=== PATIENT | female | born 1950 | race Caucasian/White ===

== ENCOUNTER 2019-06-23 09:20 | Day surgery (SDC) | payer BC ==
[~2019-06-23] VITALS: Ht 167.6 cm; Wt 98.4 kg
[2019-06-23] MEDS ORDERED: NORVASC5 MG PO (09:48)
[2019-06-23] MEDS ORDERED: ZYRTEC10 MG PO (09:49)
[2019-06-23] MEDS ORDERED: PRILOSEC OTC20 MG PO (09:49)
[2019-06-23] MEDS ORDERED: CYMBALTA30 MG PO (09:49)
[2019-06-23] MEDS ORDERED: VENTOLIN HFA18 GM INH (09:50)
--- NOTE | 2019-06-23 21:29 | EKG ---
[facility] [address] [facility] [place] [address] Signed Normal sinus rhythm Left axis deviation Nonspecific T wave abnormality Abnormal ECG No previous ECGs available Confirmed by ESTHER KOTHARI MD ([id number]) on 06/23/2019 9:29:34 PM Electronically Signed By: ESTHER KOTHARI MD 06/23/19 2129 PATIENT NAME: EDITH TANG Electrocardiogram DATE OF : 52 PHYSICIAN: ESTHER KOTHARI MD REPORT #: [id number] REPORT IS CONFIDENTIAL AND NOT TO BE RELEASED WITHOUT AUTHORIZATION
--- NOTE | 2019-06-24 22:00 | OR ---
[facility] [address] [place], [place] [address] Signed DATE OF OPERATION: 06/23/2019 SURGEON: Zackary Espinoza MD PREOPERATIVE DIAGNOSES: 1. Longstanding gastroesophageal reflux symptoms and occasions of dysphagia. 2. 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 POSTOPERATIVE DIAGNOSIS: 1. Corrugated appearance of mid esophagus, uncertain regarding the eosinophilic esophagitis. 2. Low-grade stricture. PROCEDURES: 1. Esophagogastroduodenoscopy with biopsy. 2. [place] Korean pimv-ali-ewag dilation to 51-Montenegrin with fluoroscopic control. ANESTHESIA: Propofol infusion, Krystian Dang CRNA INDICATIONS: This 69-year-old white woman, who is a patient of MAYURI Cordova in [place]. She has been treated for a number of years by Dr. Oakley, subsequently Dr. Cates in [place], they have both seems retired. She has had complaints of episodic regurgitation with "flecks of blood" and some dysphagia from feiq-tw-yzto. She was treated empirically by MAYURI Cordova with Prilosec, which has been markedly helpful to her regarding reflux symptoms and her dysphagia somewhat. She is not known to have had prior dilation in the past. She says she has had ulcers diagnosed in the distant past. Additionally, she notes a family history of esophageal cancer in her family (father). She is admitted to undergo upper endoscopy and possible dilation depending on clinical findings. She understands risks of bleeding, infection, and perforation and wished to proceed. FINDINGS: There was no dense stricture and certainly no sign of Wahl's epithelium. The GE junction was relatively good. There was no large hiatal hernia by any means. Stomach looked reasonable as did the duodenum. There were few gastric polyps of little concern. Biopsies were taken from the antrum for both ZAHRAA and pathologic testing as well as midesophagus to assess for eosinophilic esophagitis. Given her dysphagia complaints and Electronically Signed By: ZACKARY ESPINOZA MD 06/24/19 2200 PATIENT NAME: EDITH TANG OPERATIVE REPORT DATE OF : 52 REPORT #: [id number] PHYSICIAN: ZACKARY ESPINOZA MD PCP: SILVANA MADRID PA-C REPORT IS CONFIDENTIAL AND NOT TO BE RELEASED WITHOUT AUTHORIZATION [facility] [address] [place], [place] [address] Signed despite improvement with Prilosec, esophageal dilation was undertaken as a separate distinct intervention using an [place] xfbx-obb-mhsd dilator system with fluoroscopic control. Dilation was undertaken with 51-Montenegrin without problem. Post dilation endoscopy showed no sign of mucosal tearing or anything of that sort. DESCRIPTION OF PROCEDURE: The patient was brought to the operating room, endoscopy suite and placed in lateral decubitus position, given intravenous sedation with propofol infusional technique. Hurricaine spray hypopharyngeal anesthesia had been given initially. A bite block was of placed. An Olympus video upper endoscope was passed into the hypopharynx. Vocal cords were normal. Scope was advanced down the esophagus. There appeared to be a midesophageal corrugated appearance suggestive, though not diagnostic of an eosinophilic esophagitis and minimal low-grade stricture. The scope was advanced into the distal esophagus. There was no evidence of Wahl's epithelium. The scope was passed into the stomach, which was insufflated with air. Rugal folds were normal. Stomach laid in a transverse position. With various manipulations, the antrum was better characterized and pylorus noted and the scope passed through into the duodenum. The duodenum was normal. There was no sign of ulceration. Biopsies were taken of the antrum for both ZAHRAA and pathologic testing. Retroflexed view was undertaken. With various manipulation, it showing a good flap valve, it is more so than I expected. The scope was withdrawn to the distal esophagus. There was no sign of esophageal mucosal lesions, specifically no Wahl's epithelium. The scope was withdrawn to the mid esophagus and biopsies were taken there due to the corrugated appearance and to assess for eosinophilic esophagitis. The scope was once again advanced into the stomach and the [place] Korean ytst-jmo-utbq dilator wire was passed through the operating channel of the scope and passed to the antrum. The scope was carefully withdrawn and secured by the itinerant teacher assistant and scope fully removed. Fluoroscopy was then used to ascertain the wire well below the diaphragm into the stomach. A 36-Montenegrin [place] xpxj-nou-qxlg dilator was lubricated and passed over the wire under fluoroscopic control. Photographs were taken. The dilator was then removed. Given the lack of resistance and passage of the dilator, a 51-Montenegrin dilator was then passed under direct fluoroscopic control. Again, well lubricated and showing no resistance to passage. The dilator and the wire were then removed. The upper endoscope was once again reintroduced into the oropharynx after replacement of the bite block. Examination of the esophagus throughout showed no sign of injury or other problem. Stomach was normal as well. The scope was removed, and the patient was taken to the recovery room in good condition. CONCLUDING DIAGNOSIS: Mild dysphagia may well be related to the eosinophilic esophagitis. We will await biopsies to ascertain if that is the case. There is no sign of Wahl's epithelium Electronically Signed By: ZACKARY ESPINOZA MD 06/24/19 3737 PATIENT NAME: EDITH TANG OPERATIVE REPORT DATE OF : 52 REPORT #: [id number] PHYSICIAN: ZACKARY ESPINOZA MD PCP: SILVANA MADRID PA-C REPORT IS CONFIDENTIAL AND NOT TO BE RELEASED WITHOUT AUTHORIZATION [address] [place], [place] [address] Signed despite her concerns for that. I would have her continue with the Prilosec 20 mg p.o. daily. She wishes a refill and I will provide for her. We will see her back in a month or so as a consolidating visit. MD DARLIN Metzger/PAULINE /[id number] Copies: ~ Electronically Signed By: ZACKARY ESPINOZA MD 06/24/19 2200 PATIENT NAME: EDITH TANG OPERATIVE REPORT DATE OF : 52 REPORT #: [id number] PHYSICIAN: ZACKARY ESPINOZA MD PCP: SILVANA MADRID PA-C REPORT IS CONFIDENTIAL AND NOT TO BE RELEASED WITHOUT AUTHORIZATION
--- NOTE | 2019-06-28 14:20 | PATH ---
[facility] [address] [place], [place] [address] Signed SPECIMEN(S): A ANTRUM/PYLORUS SPECIMEN(S): B MIDDLE ESOPHAGUS SPECIMEN SOURCE: A. ANTRUM/PYLORUS B. MIDDLE ESOPHAGUS CLINICAL HISTORY: Hematemesis, peptic disease. Postop Dx: Low grade esophageal stricture. MICROSCOPIC DESCRIPTION: Histologic sections of all submitted blocks are examined by light microscopy. These findings, together with the gross examination, support the pathologic diagnosis. FINAL PATHOLOGIC DIAGNOSIS: A. Stomach, antrum/pylorus, biopsies: - No significant histopathologic alterations. B. Middle esophagus, biopsy: - Reflux esophagitis. - No evidence of Wahl's esophagus. - A fragment of normal appearing gastric mucosa is present. COMMENT: For specimen A, the sections through the gastric biopsies show fragments of histologically unremarkable antral mucosa. There is no evidence of acute or chronic inflammation. There is no evidence of H. pylori, intestinal metaplasia, abnormal infiltrates or neoplasia. For specimen B, the biopsy contains reactive appearing squamous mucosa. Infiltration by lymphocytes and a small number of eosinophils is present. There is a small fragment of gastric mucosa present. It is histologically unremarkable. There is no evidence of intestinal metaplasia. There is no evidence of H. pylori. TWK:emb:C2NR GROSS DESCRIPTION: Two specimens are received in two containers, labeled "DW." A. The specimen, labeled "DW, 1," and designated on the requisition "antrum/pylorus," is received in formalin and consists of two johnson soft tissue fragments that measure 0.3 cm in greatest dimension. The specimen is entirely submitted in cassette (A1). B. The specimen, labeled "DW, 2," and designated on the requisition "mid PATIENT NAME: EDITH TANG PATHOLOGY DATE OF : 52 REPORT #: [id number] PHYSICIAN: IRVIN PATHOLOGY PCP: SILVANA MADRID PA-C REPORT IS CONFIDENTIAL AND NOT TO BE RELEASED WITHOUT AUTHORIZATION [facility] [address] [place], [place] [address] Signed esophagus," is received in formalin and consists of two johnson soft tissue fragments that measure 0.4 cm in greatest dimension. The specimen is entirely submitted in cassette (B1). AT (under the direct supervision of a pathologist) The Gross Description was prepared using a voice recognition system. The report was reviewed for accuracy; however, sound-alike word errors, addition and/or deletions may occur. If there is any question about this report, please contact Client Services. PERFORMING LABORATORY: The technical component was performed by [facility], [address] [place] [id number] (Street Light Servicer Helper: Nesha Perkins MD; CLIA# [id number]). [facility], [address] [place] [id number] (CLIA# [id number]). Diagnostician: Zoltan Coppola MD Pathologist Electronically Signed 06/28/2019 Copies: ~ PATIENT NAME: EDITH TANG PATHOLOGY DATE OF : 52 REPORT #: [id number] PHYSICIAN: IRVIN CERRATO PCP: SILVANA MADRID PA-C REPORT IS CONFIDENTIAL AND NOT TO BE RELEASED WITHOUT AUTHORIZATION
== END 2019-06-23 14:50 | disposition home or self-care (01) ==
LOC: DS 09:20 → OPS 09:20 → DS 10:00 → OPS 10:30
PROVIDERS: Surgery
PROC: 0DB28ZX Excision of Middle Esophagus, Via Natural or Artificial Opening Endoscopic, Diagnostic (ICD-10-PCS; 2019-06-23)
PROC: 0DB78ZX Excision of Stomach, Pylorus, Via Natural or Artificial Opening Endoscopic, Diagnostic (ICD-10-PCS; 2019-06-23)
PROC: 0D768ZZ Dilation of Stomach, Via Natural or Artificial Opening Endoscopic (ICD-10-PCS; principal; 2019-06-23 10:30)
DX: K31.89 Other diseases of stomach and duodenum (principal); K21.0 Gastro-esophageal reflux disease with esophagitis; I10 Essential (primary) hypertension; J45.909 Unspecified asthma, uncomplicated; Z88.6 Allergy status to analgesic agent; Z88.0 Allergy status to penicillin; Z79.899 Other long term (current) drug therapy; Z79.51 Long term (current) use of inhaled steroids
CPT/HCPCS: 76000; 93005; 93010; J2001; J2704

== ENCOUNTER 2021-08-05 14:18 | Inpatient (IN) | payer MEDICARE ==
[~2021-08-05] VITALS: Ht 167.6 cm; Wt 98.7 kg
[~2021-08-05 14:18] MED LIST: CYMBALTA30 MG PO; NORVASC5 MG PO; PRILOSEC OTC20 MG PO; VENTOLIN HFA18 GM INH; ZYRTEC10 MG PO
[2021-08-05] MEDS ORDERED: AMLODIPINE BESYL5 MG PO (14:38)
[2021-08-06] MEDS ORDERED: CLOBETASOL PROP15 G1 TOP (07:50)
[2021-08-06] MEDS ORDERED: MIRALAX17 GM PO (08:50)
[2021-08-06] MEDS ORDERED: SIMETHICONE80 MG PO (08:51)
--- NOTE | 2021-08-06 18:18 | EKG ---
[facility] [address] [place] [address] Signed Poor data quality, interpretation may be adversely affected Atrial fibrillation with rapid ventricular response Low voltage QRS Nonspecific T wave abnormality Abnormal ECG When compared with ECG of 23-JUN-2019 10:09, Atrial fibrillation has replaced Sinus rhythm Vent. rate has increased BY 69 BPM Inverted T waves have replaced nonspecific T wave abnormality in Lateral leads Confirmed by KERON KENT MD ([id number]) on 08/06/2021 6:18:20 PM Electronically Signed By: KERON KENT MD 08/06/21 1818 PATIENT NAME: EDITH TANG Electrocardiogram DATE OF : 52 PHYSICIAN: KERON KENT MD REPORT #: [id number] REPORT IS CONFIDENTIAL AND NOT TO BE RELEASED WITHOUT AUTHORIZATION
[2021-08-09] MEDS ORDERED: OMEPRAZOLE40 MG PO (09:11)
[2021-08-09] MEDS ORDERED: WARFARIN SODIUM5 MG PO (10:48)
[2021-08-09] MEDS ORDERED: METOPROLOL SUC200 MG PO (10:49)
[2021-08-09] MEDS ORDERED: HYDROXYZINE PAM25 MG PO (10:49)
[2021-08-09] MEDS ORDERED: VITAMIN B-121000 MCG PO (10:50)
[2021-08-09] MEDS ORDERED: TORSEMIDE10 MG PO (10:55)
== END 2021-08-09 13:15 | disposition home or self-care (01) | DRG 291 ==
LOC: ED 14:18 → CCU 20:10 → MS 08-07 12:38
PROVIDERS: ADMIT Internal Medicine; ATTEND Internal Medicine
DX: I11.0 Hypertensive heart disease with heart failure (principal); I50.33 Acute on chronic diastolic (congestive) heart failure; Z20.822 Contact with and (suspected) exposure to COVID-19; I48.0 Paroxysmal atrial fibrillation; I34.0 Nonrheumatic mitral (valve) insufficiency; D51.3 Other dietary vitamin B12 deficiency anemia; G47.33 Obstructive sleep apnea (adult) (pediatric); K21.9 Gastro-esophageal reflux disease without esophagitis; F41.9 Anxiety disorder, unspecified; Z87.11 Personal history of peptic ulcer disease; Z88.0 Allergy status to penicillin; Z88.8 Allergy status to other drugs, medicaments and biological substances; Z79.01 Long term (current) use of anticoagulants; Z79.899 Other long term (current) drug therapy
CPT/HCPCS: 36415; 71045; 71260; 74018; 80048; 80053; 80061; 82607; 82728; 82746; 83036; 83540; 83550; 83735; 83880; 84484; 85025; 85379; 85610; 87502; 93005; 93010; 93306; 99285-25; A9270; C9803; J1650; J1940; J2405; Q0177; Q9967; U0003

== ENCOUNTER 2021-09-01 16:39 | Emergency (ER) | payer MEDICARE ==
[~2021-09-01] VITALS: Ht 167.6 cm; Wt 100.2 kg
[~2021-09-01 16:39] MED LIST changes: +AMLODIPINE BESYL5 MG PO; +CLOBETASOL PROP15 G1 TOP; +HYDROXYZINE PAM25 MG PO; +METOPROLOL SUC200 MG PO; +MIRALAX17 GM PO; +OMEPRAZOLE40 MG PO; +SIMETHICONE80 MG PO; +TORSEMIDE10 MG PO; +VITAMIN B-121000 MCG PO; +WARFARIN SODIUM5 MG PO
--- OUTSIDE RECORDS SUMMARY | 2021-09-01 17:30 | XMS ---
PreManage Notification: EDITH TANG Security Commission Agent Livestock Events No recent Security Events currently on file CRITERIA MET - [facility] - 2 Visits in 30 Days CARE PROVIDERS LOUISE BARKER Physician Manager Cardiovascular: Medical Current PHONE: Unknown [place] [facility] Current PHONE: Unknown Bk has no Care Guidelines for this patient. Lydia VISIT COUNT (12 MO.) 2 [facility] TOTAL 2 NOTE: Visits indicate total known visits. ED/UCC VISIT TRACKING (12 MO.) 09/01/2021 16:39 [facility] TYPE: Emergency COMPLAINT: - SHORTNESS OF BREATH 08/05/2021 14:20 [facility] TYPE: Emergency COMPLAINT: - CHEST PAIN, PAIN/SWELLING LEGS, SOB INPATIENT VISIT TRACKING (12 MO.) 08/05/2021 20:[address] [facility] [place] TYPE: Medical Surgical COMPLAINT: - ATRIAL FIBRILLATION CHF DIAGNOSES: - Acute on chronic diastolic (congestive) heart failure - Other dietary vitamin B12 deficiency anemia - Allergy status to penicillin - Heart failure, unspecified - Other senior care (current) drug therapy - Hypertensive heart disease with heart failure - Paroxysmal atrial fibrillation - Obstructive sleep apnea (adult) (pediatric) - Gastro-esophageal reflux disease without esophagitis - Obstructive sleep apnea (adult) (pediatric) - Allergy status to penicillin - Contact with and (suspected) exposure to COVID-19 - Allergy status to other drugs, medicaments and biological substances - prison (current) use of anticoagulants - Nonrheumatic mitral (valve) insufficiency - Anxiety disorder, unspecified - Other senior care (current) drug therapy - Gastro-esophageal reflux disease without esophagitis - Contact with and (suspected) exposure to COVID-19 - Other dietary vitamin B12 deficiency anemia - pet handler (current) use of anticoagulants - Personal history of peptic ulcer disease - Paroxysmal atrial fibrillation - Acute on chronic diastolic (congestive) heart failure - Allergy status to other drugs, medicaments and biological substances - Nonrheumatic mitral (valve) insufficiency - Anxiety disorder, unspecified - Personal history of peptic ulcer disease - Hypertensive heart disease with heart failure [email or web address]
== END 2021-09-01 19:05 | disposition home or self-care (01) ==
LOC: ED 16:39
DX: R00.2 Palpitations (principal); I48.20 Chronic atrial fibrillation, unspecified; I11.0 Hypertensive heart disease with heart failure; I50.9 Heart failure, unspecified; J45.909 Unspecified asthma, uncomplicated; Z79.899 Other long term (current) drug therapy; Z79.01 Long term (current) use of anticoagulants; Z88.6 Allergy status to analgesic agent; Z88.0 Allergy status to penicillin
CPT/HCPCS: 36415; 85610; 85730; 99284